=== PATIENT | male | born 1940 | race Caucasian/White ===

== ENCOUNTER → 2016-03-12 | Outpatient (REF) | payer MEDICARE, OTHER | LOC: M LAB REF 13:26 | PROVIDERS: ATTEND Nurse Practitioner Family | DX: L08.9 Local infection of the skin and subcutaneous tissue, unspecified (principal) ==

== ENCOUNTER → 2018-02-22 | Outpatient (REF) | payer MEDICARE, OTHER | LOC: M SFHCPLAZ 15:52 | PROVIDERS: ATTEND Internal Medicine Infectious Disease | DX: M86.659 Other chronic osteomyelitis, unspecified thigh (principal) | CPT/HCPCS: 36415; 80053; 85025; 85652; 86140; 87070; 87077; 87186; G0463 ==

== ENCOUNTER → 2018-02-22 | Outpatient (REF) | payer MEDICARE, OTHER ==
[2018-02-22 17:21] LABS: ALBUMIN 3.2 GM/DL (3.2-5.2); BASO # 0.1 10^3/uL (0.0-0.2); BASO % 0.5 % (0.0-1.0); BILIRUBIN,TOTAL 0.2 MG/DL (0.2-1.0); C REACTIVE PROTEIN QUANTITATIV 5.12 MG/DL (0.00-0.30); CALCIUM LEVEL 8.7 MG/DL (8.8-10.2); CREATININE FOR GFR 1.33 MG/DL (0.70-1.30); EOS # 0.2 10^3/uL (0.0-0.50); GLOMERULAR FILTRATION RATE 55.5 (>42); HEMATOCRIT 39.6 % (42.0-52.0); HEMOGLOBIN 12.9 g/dl (13.5-17.5); LYMPH # 1.4 10^3/uL (1.5-4.5); LYMPH % 12.5 % (24.0-44.0); MEAN CORPUSCULAR HEMOGLOBIN 29.8 pg (27.0-33.0); MEAN CORPUSCULAR HGB CONC 32.6 g/dl (32.0-36.5); MEAN CORPUSCULAR VOLUME 91.5 fl (80.0-96.0); MONO # 0.8 10^3/uL (0.0-0.8); MONO % 7.7 % (0.0-5.0); NEUTROPHILS # 8.4 10^3/uL (1.8-7.7); NEUTROPHILS % 76.8 % (36.0-66.0); PLATELET COUNT, AUTOMATED 296 10^3/uL (150-450); POTASSIUM SERUM 4.1 MEQ/L (3.5-5.1); RED BLOOD COUNT 4.33 10^6/uL (4.30-6.10); TOTAL PROTEIN 7.1 GM/DL (6.4-8.2); WHITE BLOOD COUNT 10.9 10^3/uL (4.0-10.0)
[2018-02-22 23:27] LABS: ERYTHROCYTE SEDIMENTATION RATE 81 mm/hr (0-20)
== END ==
LOC: M SFHCPLAZ 14:28
PROVIDERS: ATTEND Internal Medicine Infectious Disease
DX: M86.659 Other chronic osteomyelitis, unspecified thigh (principal)

== ENCOUNTER → 2018-03-08 | Outpatient (REF) | payer MEDICARE, OTHER ==
[2018-03-08 15:45] LABS: BASO % 0.3 % (0.0-1.0); EOS # 0.2 10^3/uL (0.0-0.50); EOS % 2.5 % (0.0-3.0); HEMATOCRIT 42.6 % (42.0-52.0); HEMOGLOBIN 13.9 g/dl (13.5-17.5); LYMPH # 2.1 10^3/uL (1.5-4.5); LYMPH % 23.2 % (24.0-44.0); MEAN CORPUSCULAR HEMOGLOBIN 29.5 pg (27.0-33.0); MEAN CORPUSCULAR HGB CONC 32.6 g/dl (32.0-36.5); MEAN CORPUSCULAR VOLUME 90.4 fl (80.0-96.0); MONO # 0.9 10^3/uL (0.0-0.8); MONO % 9.4 % (0.0-5.0); NEUTROPHILS # 5.8 10^3/uL (1.8-7.7); PLATELET COUNT, AUTOMATED 248 10^3/uL (150-450); RED BLOOD COUNT 4.71 10^6/uL (4.30-6.10)
[2018-03-08 15:49] LABS: BLOOD UREA NITROGEN 23 MG/DL (7-18); C REACTIVE PROTEIN QUANTITATIV 0.67 MG/DL (0.00-0.30); CALCIUM LEVEL 8.7 MG/DL (8.8-10.2); CARBON DIOXIDE LEVEL 28 MEQ/L (21-32); CHLORIDE LEVEL 106 MEQ/L (98-107); CREATININE FOR GFR 1.17 MG/DL (0.70-1.30); GLOMERULAR FILTRATION RATE > 60.0 (>42); GLUCOSE, FASTING 83 MG/DL (70-100); POTASSIUM SERUM 4.2 MEQ/L (3.5-5.1); SODIUM LEVEL 140 MEQ/L (136-145)
[2018-03-08 16:19] LABS: ERYTHROCYTE SEDIMENTATION RATE 69 mm/hr (0-20)
== END ==
LOC: M SFHCPLAZ 13:26
PROVIDERS: ATTEND Internal Medicine Infectious Disease
DX: M86.659 Other chronic osteomyelitis, unspecified thigh (principal)
CPT/HCPCS: 36415; 80048; 85025; 85652; 86140; G0463

== ENCOUNTER → 2018-03-21 | Outpatient (REF) | payer MEDICARE, OTHER ==
[2018-03-21 14:19] LABS: BASO % 0.5 % (0.0-1.0); EOS # 0.2 10^3/uL (0.0-0.50); EOS % 2.1 % (0.0-3.0); HEMOGLOBIN 13.7 g/dl (13.5-17.5); LYMPH # 1.5 10^3/uL (1.5-4.5); LYMPH % 20.1 % (24.0-44.0); MEAN CORPUSCULAR HEMOGLOBIN 29.7 pg (27.0-33.0); MEAN CORPUSCULAR HGB CONC 32.6 g/dl (32.0-36.5); MEAN CORPUSCULAR VOLUME 91.1 fl (80.0-96.0); MONO # 0.7 10^3/uL (0.0-0.8); MONO % 9.7 % (0.0-5.0); NEUTROPHILS % 67.2 % (36.0-66.0); PLATELET COUNT, AUTOMATED 204 10^3/uL (150-450); RED BLOOD COUNT 4.61 10^6/uL (4.30-6.10); WHITE BLOOD COUNT 7.5 10^3/uL (4.0-10.0)
[2018-03-21 15:13] LABS: ERYTHROCYTE SEDIMENTATION RATE 44 mm/hr (0-20)
== END ==
LOC: M SFHCPLAZ 10:47
PROVIDERS: ATTEND Internal Medicine Infectious Disease
DX: M86.659 Other chronic osteomyelitis, unspecified thigh (principal)
CPT/HCPCS: 36415; 85025; 85652; 86140; G0463

== ENCOUNTER → 2018-05-05 | Outpatient (REF) | payer MEDICARE, OTHER ==
[2018-05-05 16:02] LABS: BASO # 0.1 10^3/uL (0.0-0.2); BASO % 0.7 % (0.0-1.0); EOS # 0.2 10^3/uL (0.0-0.50); EOS % 2.3 % (0.0-3.0); HEMATOCRIT 45.9 % (42.0-52.0); LYMPH # 1.8 10^3/uL (1.5-4.5); MEAN CORPUSCULAR HEMOGLOBIN 30.8 pg (27.0-33.0); MEAN CORPUSCULAR HGB CONC 32.7 g/dl (32.0-36.5); MEAN CORPUSCULAR VOLUME 94.3 fl (80.0-96.0); MONO # 0.7 10^3/uL (0.0-0.8); MONO % 8.1 % (0.0-5.0); NEUTROPHILS # 5.8 10^3/uL (1.8-7.7); NEUTROPHILS % 67.6 % (36.0-66.0); PLATELET COUNT, AUTOMATED 215 10^3/uL (150-450); RED BLOOD COUNT 4.87 10^6/uL (4.30-6.10); WHITE BLOOD COUNT 8.6 10^3/uL (4.0-10.0)
[2018-05-05 17:41] LABS: ERYTHROCYTE SEDIMENTATION RATE 27 mm/hr (0-20)
== END ==
LOC: M SFHCPLAZ 13:06
PROVIDERS: ATTEND Internal Medicine Infectious Disease
DX: M86.659 Other chronic osteomyelitis, unspecified thigh (principal)
CPT/HCPCS: 36415; 85025; 85652; 86140; G0463

== ENCOUNTER → 2018-05-23 | Outpatient (REF) | payer MEDICARE, OTHER ==
[2018-05-23 16:55] LABS: BASO # 0.1 10^3/uL (0.0-0.2); BASO % 0.6 % (0.0-1.0); EOS # 0.3 10^3/uL (0.0-0.50); HEMOGLOBIN 14.1 g/dl (13.5-17.5); LYMPH # 2.1 10^3/uL (1.5-4.5); LYMPH % 24.8 % (24.0-44.0); MEAN CORPUSCULAR HEMOGLOBIN 30.4 pg (27.0-33.0); MEAN CORPUSCULAR HGB CONC 32.8 g/dl (32.0-36.5); MEAN CORPUSCULAR VOLUME 92.7 fl (80.0-96.0); MONO % 11.5 % (0.0-5.0); NEUTROPHILS # 4.9 10^3/uL (1.8-7.7); NEUTROPHILS % 59.7 % (36.0-66.0); PLATELET COUNT, AUTOMATED 192 10^3/uL (150-450); RED BLOOD COUNT 4.64 10^6/uL (4.30-6.10); WHITE BLOOD COUNT 8.3 10^3/uL (4.0-10.0)
[2018-05-23 18:46] LABS: ERYTHROCYTE SEDIMENTATION RATE 25 mm/hr (0-20)
== END ==
LOC: M SFHCPLAZ 13:43
PROVIDERS: ATTEND Internal Medicine Infectious Disease
DX: M86.659 Other chronic osteomyelitis, unspecified thigh (principal)
CPT/HCPCS: 36415; 85025; 85652; 86140; G0463

== ENCOUNTER → 2018-06-06 | Outpatient (REF) | payer MEDICARE, OTHER ==
[2018-06-06 12:00] LABS: BASO % 0.4 % (0.0-1.0); EOS # 0.2 10^3/uL (0.0-0.50); HEMATOCRIT 45.9 % (42.0-52.0); HEMOGLOBIN 15.1 g/dl (13.5-17.5); LYMPH # 1.4 10^3/uL (1.5-4.5); LYMPH % 14.1 % (24.0-44.0); MEAN CORPUSCULAR HEMOGLOBIN 30.7 pg (27.0-33.0); MEAN CORPUSCULAR HGB CONC 32.9 g/dl (32.0-36.5); MEAN CORPUSCULAR VOLUME 93.3 fl (80.0-96.0); MONO # 1.1 10^3/uL (0.0-0.8); MONO % 11.5 % (0.0-5.0); NEUTROPHILS # 6.8 10^3/uL (1.8-7.7); NEUTROPHILS % 71.5 % (36.0-66.0); PLATELET COUNT, AUTOMATED 198 10^3/uL (150-450); RED BLOOD COUNT 4.92 10^6/uL (4.30-6.10); WHITE BLOOD COUNT 9.6 10^3/uL (4.0-10.0)
[2018-06-06 22:13] LABS: ERYTHROCYTE SEDIMENTATION RATE 18 mm/hr (0-20)
== END ==
LOC: M SFHCPLAZ 08:51
PROVIDERS: ATTEND Internal Medicine Infectious Disease
DX: M86.659 Other chronic osteomyelitis, unspecified thigh (principal)

== ENCOUNTER → 2018-06-13 | Outpatient (REF) | payer MEDICARE, OTHER ==
[2018-06-13 12:58] LABS: BASO # 0.1 10^3/uL (0.0-0.2); BASO % 0.6 % (0.0-1.0); EOS # 0.1 10^3/uL (0.0-0.50); EOS % 1.6 % (0.0-3.0); HEMATOCRIT 44.1 % (42.0-52.0); HEMOGLOBIN 14.8 g/dl (13.5-17.5); LYMPH # 1.5 10^3/uL (1.5-4.5); LYMPH % 16.8 % (24.0-44.0); MEAN CORPUSCULAR HEMOGLOBIN 31.6 pg (27.0-33.0); MEAN CORPUSCULAR HGB CONC 33.6 g/dl (32.0-36.5); MEAN CORPUSCULAR VOLUME 94.2 fl (80.0-96.0); MONO # 0.7 10^3/uL (0.0-0.8); MONO % 7.8 % (0.0-5.0); NEUTROPHILS # 6.5 10^3/uL (1.8-7.7); NEUTROPHILS % 72.5 % (36.0-66.0); PLATELET COUNT, AUTOMATED 216 10^3/uL (150-450); RED BLOOD COUNT 4.68 10^6/uL (4.30-6.10); WHITE BLOOD COUNT 8.9 10^3/uL (4.0-10.0)
[2018-06-13 14:18] LABS: ERYTHROCYTE SEDIMENTATION RATE 70 mm/hr (0-20)
== END ==
LOC: M SFHCPLAZ 09:41
PROVIDERS: ATTEND Internal Medicine Infectious Disease
DX: M86.659 Other chronic osteomyelitis, unspecified thigh (principal)

== ENCOUNTER → 2018-06-16 | Outpatient (REF) | payer MEDICARE, OTHER | LOC: M SFHCPLAZ 11:55 | PROVIDERS: ATTEND Internal Medicine Infectious Disease | DX: A49.01 Methicillin susceptible Staphylococcus aureus infection, unspecified site (principal) | CPT/HCPCS: 87070; 87186; G0463 ==

== ENCOUNTER → 2018-06-30 | Outpatient (REF) | payer MEDICARE, OTHER ==
[2018-06-30 12:20] LABS: BASO % 0.6 % (0.0-1.0); EOS # 0.2 10^3/uL (0.0-0.50); EOS % 2.4 % (0.0-3.0); HEMATOCRIT 43.1 % (42.0-52.0); LYMPH # 1.4 10^3/uL (1.5-4.5); LYMPH % 20.3 % (24.0-44.0); MEAN CORPUSCULAR HEMOGLOBIN 30.9 pg (27.0-33.0); MEAN CORPUSCULAR HGB CONC 32.5 g/dl (32.0-36.5); MEAN CORPUSCULAR VOLUME 95.1 fl (80.0-96.0); MONO # 0.7 10^3/uL (0.0-0.8); MONO % 10.1 % (0.0-5.0); NEUTROPHILS # 4.5 10^3/uL (1.8-7.7); NEUTROPHILS % 65.9 % (36.0-66.0); PLATELET COUNT, AUTOMATED 226 10^3/uL (150-450); RED BLOOD COUNT 4.53 10^6/uL (4.30-6.10); WHITE BLOOD COUNT 6.8 10^3/uL (4.0-10.0)
[2018-06-30 12:25] LABS: C REACTIVE PROTEIN QUANTITATIV 0.99 MG/DL (0.00-0.30); CALCIUM LEVEL 8.6 MG/DL (8.8-10.2); CREATININE FOR GFR 1.4 MG/DL (0.70-1.30); GLOMERULAR FILTRATION RATE 52.3 (>42); POTASSIUM SERUM 4.3 MEQ/L (3.5-5.1)
[2018-06-30 12:52] LABS: ERYTHROCYTE SEDIMENTATION RATE 44 mm/hr (0-20)
== END ==
LOC: M SFHCPLAZ 10:35
PROVIDERS: ATTEND Internal Medicine Infectious Disease
DX: A49.01 Methicillin susceptible Staphylococcus aureus infection, unspecified site (principal)

== ENCOUNTER → 2018-07-14 | Outpatient (REF) | payer MEDICARE, OTHER ==
[2018-07-14 14:04] LABS: BASO # 0.1 10^3/uL (0.0-0.2); BASO % 0.6 % (0.0-1.0); EOS # 0.2 10^3/uL (0.0-0.50); EOS % 3.1 % (0.0-3.0); HEMATOCRIT 48.2 % (42.0-52.0); HEMOGLOBIN 15.7 g/dl (13.5-17.5); LYMPH # 1.7 10^3/uL (1.5-4.5); LYMPH % 22.5 % (24.0-44.0); MEAN CORPUSCULAR HGB CONC 32.6 g/dl (32.0-36.5); MEAN CORPUSCULAR VOLUME 95.1 fl (80.0-96.0); MONO # 0.9 10^3/uL (0.0-0.8); NEUTROPHILS # 4.8 10^3/uL (1.8-7.7); NEUTROPHILS % 62.2 % (36.0-66.0); PLATELET COUNT, AUTOMATED 192 10^3/uL (150-450); RED BLOOD COUNT 5.07 10^6/uL (4.30-6.10); WHITE BLOOD COUNT 7.7 10^3/uL (4.0-10.0)
[2018-07-14 14:31] LABS: C REACTIVE PROTEIN QUANTITATIV 0.45 MG/DL (0.00-0.30); CALCIUM LEVEL 9.4 MG/DL (8.8-10.2); CREATININE FOR GFR 1.39 MG/DL (0.70-1.30); GLOMERULAR FILTRATION RATE 52.7 (>42); POTASSIUM SERUM 4.2 MEQ/L (3.5-5.1)
[2018-07-14 15:38] LABS: ERYTHROCYTE SEDIMENTATION RATE 35 mm/hr (0-20)
== END ==
LOC: M SFHCPLAZ 11:50
PROVIDERS: ATTEND Internal Medicine Infectious Disease
DX: A49.01 Methicillin susceptible Staphylococcus aureus infection, unspecified site (principal)
CPT/HCPCS: 36415; 80048; 85025; 85652; 86140; G0463

== ENCOUNTER → 2018-07-28 | Outpatient (REF) | payer MEDICARE, OTHER ==
[2018-07-28 13:58] LABS: BASO % 0.4 % (0.0-1.0); EOS # 0.1 10^3/uL (0.0-0.50); EOS % 1.3 % (0.0-3.0); HEMATOCRIT 44.4 % (42.0-52.0); HEMOGLOBIN 14.5 g/dl (13.5-17.5); LYMPH # 1.6 10^3/uL (1.5-4.5); LYMPH % 15.4 % (24.0-44.0); MEAN CORPUSCULAR HEMOGLOBIN 30.5 pg (27.0-33.0); MEAN CORPUSCULAR HGB CONC 32.7 g/dl (32.0-36.5); MEAN CORPUSCULAR VOLUME 93.5 fl (80.0-96.0); MONO % 9.9 % (0.0-5.0); NEUTROPHILS # 7.4 10^3/uL (1.8-7.7); NEUTROPHILS % 72.5 % (36.0-66.0); PLATELET COUNT, AUTOMATED 217 10^3/uL (150-450); RED BLOOD COUNT 4.75 10^6/uL (4.30-6.10); WHITE BLOOD COUNT 10.2 10^3/uL (4.0-10.0)
[2018-07-28 14:27] LABS: C REACTIVE PROTEIN QUANTITATIV 3.15 MG/DL (0.00-0.30); CALCIUM LEVEL 9.1 MG/DL (8.8-10.2); CREATININE FOR GFR 1.32 MG/DL (0.70-1.30); POTASSIUM SERUM 4.2 MEQ/L (3.5-5.1)
[2018-07-28 14:29] LABS: ERYTHROCYTE SEDIMENTATION RATE 43 mm/hr (0-20)
== END ==
LOC: M SFHCPLAZ 11:48
PROVIDERS: ATTEND Internal Medicine Infectious Disease
DX: M86.659 Other chronic osteomyelitis, unspecified thigh (principal)
CPT/HCPCS: 36415; 80048; 85025; 85652; 86140; G0463

== ENCOUNTER → 2018-08-11 | Outpatient (REF) | payer MEDICARE, OTHER ==
[2018-08-11 13:43] LABS: BASO % 0.4 % (0.0-1.0); C REACTIVE PROTEIN QUANTITATIV 1.06 MG/DL (0.00-0.30); CALCIUM LEVEL 9.2 MG/DL (8.8-10.2); CREATININE FOR GFR 1.42 MG/DL (0.70-1.30); EOS # 0.2 10^3/uL (0.0-0.50); EOS % 2.2 % (0.0-3.0); GLOMERULAR FILTRATION RATE 51.5 (>42); HEMATOCRIT 45.4 % (42.0-52.0); HEMOGLOBIN 14.6 g/dl (13.5-17.5); LYMPH # 1.8 10^3/uL (1.5-4.5); LYMPH % 17.7 % (24.0-44.0); MEAN CORPUSCULAR HEMOGLOBIN 30.3 pg (27.0-33.0); MEAN CORPUSCULAR HGB CONC 32.2 g/dl (32.0-36.5); MEAN CORPUSCULAR VOLUME 94.2 fl (80.0-96.0); MONO # 0.9 10^3/uL (0.0-0.8); MONO % 9.1 % (0.0-5.0); NEUTROPHILS % 70.2 % (36.0-66.0); PLATELET COUNT, AUTOMATED 225 10^3/uL (150-450); RED BLOOD COUNT 4.82 10^6/uL (4.30-6.10)
[2018-08-11 14:13] LABS: ERYTHROCYTE SEDIMENTATION RATE 34 mm/hr (0-20)
== END ==
LOC: M SFHCPLAZ 11:44
PROVIDERS: ATTEND Internal Medicine Infectious Disease
DX: M86.659 Other chronic osteomyelitis, unspecified thigh (principal)
CPT/HCPCS: 36415; 80048; 85025; 85652; 86140; G0463

== ENCOUNTER → 2018-09-01 | Outpatient (REF) | payer MEDICARE, OTHER ==
[2018-09-01 10:18] LABS: BASO # 0.1 10^3/uL (0.0-0.2); BASO % 0.7 % (0.0-1.0); EOS # 0.2 10^3/uL (0.0-0.50); EOS % 2.9 % (0.0-3.0); HEMATOCRIT 46.3 % (42.0-52.0); HEMOGLOBIN 15.5 g/dl (13.5-17.5); LYMPH # 1.3 10^3/uL (1.5-4.5); LYMPH % 18.5 % (24.0-44.0); MEAN CORPUSCULAR HEMOGLOBIN 31.4 pg (27.0-33.0); MEAN CORPUSCULAR HGB CONC 33.5 g/dl (32.0-36.5); MEAN CORPUSCULAR VOLUME 93.7 fl (80.0-96.0); MONO # 0.7 10^3/uL (0.0-0.8); NEUTROPHILS # 4.9 10^3/uL (1.8-7.7); NEUTROPHILS % 68.5 % (36.0-66.0); PLATELET COUNT, AUTOMATED 244 10^3/uL (150-450); RED BLOOD COUNT 4.94 10^6/uL (4.30-6.10); WHITE BLOOD COUNT 7.2 10^3/uL (4.0-10.0)
[2018-09-01 10:52] LABS: BILIRUBIN,TOTAL 0.6 MG/DL (0.2-1.0); C REACTIVE PROTEIN QUANTITATIV 1.24 MG/DL (0.00-0.30); CALCIUM LEVEL 9.3 MG/DL (8.8-10.2); CREATININE FOR GFR 1.39 MG/DL (0.70-1.30); GLOMERULAR FILTRATION RATE 52.7 (>42); POTASSIUM SERUM 4.5 MEQ/L (3.5-5.1); TOTAL PROTEIN 8.1 GM/DL (6.4-8.2)
[2018-09-01 10:56] LABS: ERYTHROCYTE SEDIMENTATION RATE 23 mm/hr (0-20)
== END ==
LOC: M SFHCPLAZ 08:37
PROVIDERS: ATTEND Internal Medicine Infectious Disease
DX: M86.659 Other chronic osteomyelitis, unspecified thigh (principal)
CPT/HCPCS: 36415; 80053; 85025; 85652; 86140; G0463

== ENCOUNTER → 2018-10-03 | Outpatient (REF) | payer MEDICARE, OTHER ==
[2018-10-03 14:08] LABS: BASO # 0.1 10^3/uL (0.0-0.2); BASO % 0.6 % (0.0-1.0); EOS # 0.5 10^3/uL (0.0-0.50); EOS % 3.6 % (0.0-3.0); LYMPH # 1.2 10^3/uL (1.5-4.5); LYMPH % 9.3 % (24.0-44.0); MEAN CORPUSCULAR HEMOGLOBIN 30.7 pg (27.0-33.0); MEAN CORPUSCULAR HGB CONC 32.5 g/dl (32.0-36.5); MEAN CORPUSCULAR VOLUME 94.6 fl (80.0-96.0); MONO # 1.1 10^3/uL (0.0-0.8); MONO % 8.7 % (0.0-5.0); NEUTROPHILS # 9.6 10^3/uL (1.8-7.7); NEUTROPHILS % 76.2 % (36.0-66.0); PLATELET COUNT, AUTOMATED 299 10^3/uL (150-450); RED BLOOD COUNT 4.23 10^6/uL (4.30-6.10); WHITE BLOOD COUNT 12.5 10^3/uL (4.0-10.0)
[2018-10-03 14:15] LABS: C REACTIVE PROTEIN QUANTITATIV 3.67 MG/DL (0.00-0.30); CALCIUM LEVEL 8.7 MG/DL (8.8-10.2); CREATININE FOR GFR 1.37 MG/DL (0.70-1.30); GLOMERULAR FILTRATION RATE 53.6 (>42); POTASSIUM SERUM 3.1 MEQ/L (3.5-5.1)
[2018-10-03 14:29] LABS: ERYTHROCYTE SEDIMENTATION RATE 52 mm/hr (0-20)
== END ==
LOC: M SFHCPLAZ 11:10
PROVIDERS: ATTEND Internal Medicine Infectious Disease
DX: M86.659 Other chronic osteomyelitis, unspecified thigh (principal)
CPT/HCPCS: 80048; 85025; 85652; 86140; G0463

== ENCOUNTER → 2018-10-18 | Outpatient (REF) | payer MEDICARE, OTHER | LOC: M SFHCPLAZ 15:59 | PROVIDERS: ATTEND Internal Medicine Infectious Disease | DX: R19.7 Diarrhea, unspecified (principal) | CPT/HCPCS: 36415; 80053; 85025; 85652; 86140; 87529; G0463 ==

== ENCOUNTER → 2018-10-18 | Outpatient (REF) | payer MEDICARE, OTHER ==
[2018-10-18 17:04] LABS: ALBUMIN 3.6 GM/DL (3.2-5.2); BILIRUBIN,TOTAL 0.6 MG/DL (0.2-1.0); C REACTIVE PROTEIN QUANTITATIV 1.59 MG/DL (0.00-0.30); CALCIUM LEVEL 8.8 MG/DL (8.8-10.2); CREATININE FOR GFR 1.32 MG/DL (0.70-1.30); TOTAL PROTEIN 7.2 GM/DL (6.4-8.2)
[2018-10-18 17:15] LABS: BASO # 0.1 10^3/uL (0.0-0.2); BASO % 0.5 % (0.0-1.0); EOS # 0.5 10^3/uL (0.0-0.5); EOS % 4.7 % (0.0-3.0); HEMATOCRIT 40.7 % (42.0-52.0); HEMOGLOBIN 13.3 g/dl (13.5-17.5); LYMPH # 1.4 10^3/uL (1.5-5.0); LYMPH % 12.6 % (24.0-44.0); MEAN CORPUSCULAR HEMOGLOBIN 30.9 pg (27.0-33.0); MEAN CORPUSCULAR HGB CONC 32.7 g/dl (32.0-36.5); MEAN CORPUSCULAR VOLUME 94.4 fl (80.0-96.0); MONO # 0.8 10^3/uL (0.0-0.8); MONO % 7.4 % (0.0-5.0); NEUTROPHILS % 74.2 % (36.0-66.0); PLATELET COUNT, AUTOMATED 202 10^3/uL (150-450); RED BLOOD COUNT 4.31 10^6/uL (4.30-6.10); WHITE BLOOD COUNT 10.8 10^3/uL (4.0-10.0)
[2018-10-18 18:55] LABS: ERYTHROCYTE SEDIMENTATION RATE 52 mm/hr (0-20)
== END ==
LOC: M SFHCPLAZ 13:03
PROVIDERS: ATTEND Internal Medicine Infectious Disease
DX: M86.659 Other chronic osteomyelitis, unspecified thigh (principal); R19.7 Diarrhea, unspecified

== ENCOUNTER → 2018-10-21 | Outpatient (CLI) | payer MEDICARE, BC, OTHER ==
[~2018-10-21] MED LIST: ISOVUE-370 76% 100ML VIAL (Q9967) As Ordered ONE
--- NOTE | 2018-10-21 17:25 | REP ---
Clinical: Abdominal pain. Possible osteomyelitis. Technique: Axial contrast enhanced images from the lung bases to the pubic symphysis using 100 ml Isovue 370 intravenous contrast material with coronal and sagittal re-formations. Precontrast and delayed images of the abdomen obtained. Findings: The lung bases demonstrate mild age-related interstitial changes without consolidation, obvious nodule or effusion. A small calcified granulomas identified in the medial right lower lobe (image 5). Visualized portions of the heart and pericardium are grossly normal. Liver and spleen are within normal limits. Parenchymal calcifications are noted and consistent with prior granulomatous disease. Gallbladder, pancreas, and bilateral adrenal glands are normal. The kidneys demonstrate age-related cortical atrophic changes along with minimal scattered scarring, left calcified cyst and 2.5 cm left simple cyst. There is evidence for bladder resection with diverting ileal conduit via the right anterior abdominal wall and no associated hydronephrosis. Small amounts of fluid and inflammatory stranding are identified adjacent to the ostomy in the subcutaneous soft tissues which are nonspecific. No prior examinations available for comparison. Evaluation of the enteric system demonstrates mild mucosal thickening involving the transverse colon and portions of the sigmoid colon which may reflect a mild colitis. Sigmoid diverticula are also appreciated without definite evidence for acute diverticulitis. A normal terminal ileum, cecum and appendix are identified in the right lower quadrant. Evaluation of the pelvis demonstrates findings consistent with prior bladder resection and prostate surgery. Vague nonspecific soft tissue changes within the pelvis as well as surrounding the pubic symphysis which demonstrates focal increased sclerosis, heterotopic ossification and subtle cortical irregularity and degradation cannot exclude an underlying process including osteomyelitis or metastasis. There is increased sclerosis and fusion along the right sacroiliac joint and sclerosis along the left sacroiliac joint which likely represents chronic change. Remainder of the osseous structures demonstrate generalized degenerative changes without further focal osseous abnormality. No ascites. No obvious significant adenopathy. Abdominal aorta without aneurysm or dissection. IVC filter identified below the level of the renal veins. Impression: 1. With regards to osteomyelitis, increased sclerosis with irregular changes involving the pubic symphysis with surrounding subcutaneous soft tissue and stranding cannot exclude osteomyelitis. Differential diagnosis less likely includes focal metastatic disease. 2. Evidence for ileal conduit with changes in the adjacent peristomal subcutaneous tissue including stranding and small amounts of suspected fluid are nonspecific. While these may reflect chronic/postsurgical changes, active disease including inflammatory change and metastasis cannot be excluded. 3. Further chronic appearing/age-related changes as described above. Electronically Signed by Bradford Kelly MD 10/21/2018 05:17 P
== END ==
LOC: M RAD 16:25
PROVIDERS: ATTEND Internal Medicine Infectious Disease
DX: R10.9 Unspecified abdominal pain (principal); M86.9 Osteomyelitis, unspecified
CPT/HCPCS: 74178; Q9967

== ENCOUNTER → 2018-11-08 | Outpatient (REF) | payer MEDICARE, OTHER | LOC: M SFHCPLAZ 13:24 | PROVIDERS: ATTEND Internal Medicine Infectious Disease | DX: M86.659 Other chronic osteomyelitis, unspecified thigh (principal) | CPT/HCPCS: 36415; 80048; 85025; 85652; 86140; 87070; 87077; 87102; 87186; 87205; 90682; G0008; G0463 ==

== ENCOUNTER → 2018-11-08 | Outpatient (REF) | payer MEDICARE, OTHER ==
[2018-11-08 14:13] LABS: C REACTIVE PROTEIN QUANTITATIV 1.26 MG/DL (0.00-0.30); CALCIUM LEVEL 9.1 MG/DL (8.8-10.2); CREATININE FOR GFR 1.25 MG/DL (0.70-1.30); GLOMERULAR FILTRATION RATE 59.6 (>42); POTASSIUM SERUM 4.6 MEQ/L (3.5-5.1)
[2018-11-08 14:18] LABS: BASO # 0.1 10^3/uL (0.0-0.2); BASO % 0.8 % (0.0-1.0); EOS # 0.4 10^3/uL (0.0-0.5); EOS % 4.4 % (0.0-3.0); HEMATOCRIT 41.3 % (42.0-52.0); HEMOGLOBIN 13.1 g/dl (13.5-17.5); LYMPH # 1.3 10^3/uL (1.5-5.0); MEAN CORPUSCULAR HEMOGLOBIN 30.3 pg (27.0-33.0); MEAN CORPUSCULAR HGB CONC 31.7 g/dl (32.0-36.5); MEAN CORPUSCULAR VOLUME 95.4 fl (80.0-96.0); MONO % 11.6 % (0.0-5.0); NEUTROPHILS # 5.7 10^3/uL (1.5-8.5); NEUTROPHILS % 67.7 % (36.0-66.0); PLATELET COUNT, AUTOMATED 203 10^3/uL (150-450); RED BLOOD COUNT 4.33 10^6/uL (4.30-6.10); WHITE BLOOD COUNT 8.4 10^3/uL (4.0-10.0)
[2018-11-08 14:52] LABS: ERYTHROCYTE SEDIMENTATION RATE 33 mm/hr (0-20)
== END ==
LOC: M SFHCPLAZ 11:41
PROVIDERS: ATTEND Internal Medicine Infectious Disease
DX: M86.659 Other chronic osteomyelitis, unspecified thigh (principal)

== ENCOUNTER → 2018-12-01 | Outpatient (REF) | payer MEDICARE, OTHER ==
[2018-12-01 13:49] LABS: BASO # 0.1 10^3/uL (0.0-0.2); BASO % 0.7 % (0.0-1.0); EOS # 0.5 10^3/uL (0.0-0.5); EOS % 5.7 % (0.0-3.0); HEMATOCRIT 44.7 % (42.0-52.0); HEMOGLOBIN 14.6 g/dl (13.5-17.5); LYMPH # 1.7 10^3/uL (1.5-5.0); LYMPH % 18.3 % (24.0-44.0); MEAN CORPUSCULAR HEMOGLOBIN 31.3 pg (27.0-33.0); MEAN CORPUSCULAR HGB CONC 32.7 g/dl (32.0-36.5); MEAN CORPUSCULAR VOLUME 95.9 fl (80.0-96.0); MONO % 10.5 % (0.0-5.0); NEUTROPHILS # 5.9 10^3/uL (1.5-8.5); NEUTROPHILS % 64.4 % (36.0-66.0); PLATELET COUNT, AUTOMATED 210 10^3/uL (150-450); RED BLOOD COUNT 4.66 10^6/uL (4.30-6.10); WHITE BLOOD COUNT 9.2 10^3/uL (4.0-10.0)
[2018-12-01 14:13] LABS: ERYTHROCYTE SEDIMENTATION RATE 31 mm/hr (0-20)
== END ==
LOC: M SFHCPLAZ 11:47
PROVIDERS: ATTEND Internal Medicine Infectious Disease
DX: M86.659 Other chronic osteomyelitis, unspecified thigh (principal)
CPT/HCPCS: 36415; 85025; 85652; 86140; G0463

== ENCOUNTER → 2018-12-29 | Outpatient (REF) | payer MEDICARE, OTHER ==
[2018-12-29 14:06] LABS: BASO # 0.1 10^3/uL (0.0-0.2); BASO % 0.7 % (0.0-1.0); EOS # 0.4 10^3/uL (0.0-0.5); EOS % 4.5 % (0.0-3.0); HEMATOCRIT 44.6 % (42.0-52.0); HEMOGLOBIN 14.4 g/dl (13.5-17.5); LYMPH # 1.6 10^3/uL (1.5-5.0); LYMPH % 16.6 % (24.0-44.0); MEAN CORPUSCULAR HEMOGLOBIN 30.8 pg (27.0-33.0); MEAN CORPUSCULAR HGB CONC 32.3 g/dl (32.0-36.5); MEAN CORPUSCULAR VOLUME 95.3 fl (80.0-96.0); MONO % 10.1 % (0.0-5.0); NEUTROPHILS # 6.4 10^3/uL (1.5-8.5); NEUTROPHILS % 67.5 % (36.0-66.0); PLATELET COUNT, AUTOMATED 220 10^3/uL (150-450); RED BLOOD COUNT 4.68 10^6/uL (4.30-6.10); WHITE BLOOD COUNT 9.5 10^3/uL (4.0-10.0)
[2018-12-29 15:26] LABS: ERYTHROCYTE SEDIMENTATION RATE 35 mm/hr (0-20)
== END ==
LOC: M SFHCPLAZ 11:00
PROVIDERS: ATTEND Internal Medicine Infectious Disease
DX: M86.659 Other chronic osteomyelitis, unspecified thigh (principal)
CPT/HCPCS: 36415; 85025; 85652; 86140; G0463

== ENCOUNTER → 2019-01-26 | Outpatient (REF) | payer MEDICARE, OTHER ==
[2019-01-26 13:35] LABS: C REACTIVE PROTEIN QUANTITATIV 0.54 MG/DL (0.00-0.30); CALCIUM LEVEL 9.3 MG/DL (8.8-10.2); CREATININE FOR GFR 1.31 MG/DL (0.70-1.30); GLOMERULAR FILTRATION RATE 56.3 (>42); POTASSIUM SERUM 4.5 MEQ/L (3.5-5.1)
[2019-01-26 13:37] LABS: BASO # 0.1 10^3/uL (0.0-0.2); BASO % 0.6 % (0.0-1.0); EOS # 0.4 10^3/uL (0.0-0.5); EOS % 4.3 % (0.0-3.0); HEMATOCRIT 47.4 % (42.0-52.0); HEMOGLOBIN 14.9 g/dl (13.5-17.5); LYMPH # 1.6 10^3/uL (1.5-5.0); LYMPH % 18.4 % (24.0-44.0); MEAN CORPUSCULAR HEMOGLOBIN 29.8 pg (27.0-33.0); MEAN CORPUSCULAR HGB CONC 31.4 g/dl (32.0-36.5); MEAN CORPUSCULAR VOLUME 94.8 fl (80.0-96.0); MONO # 0.9 10^3/uL (0.0-0.8); MONO % 10.1 % (0.0-5.0); NEUTROPHILS # 5.8 10^3/uL (1.5-8.5); NEUTROPHILS % 65.9 % (36.0-66.0); PLATELET COUNT, AUTOMATED 227 10^3/uL (150-450); WHITE BLOOD COUNT 8.8 10^3/uL (4.0-10.0)
[2019-01-26 14:18] LABS: ERYTHROCYTE SEDIMENTATION RATE 36 mm/hr (0-20)
== END ==
LOC: M SFHCPLAZ 11:14
PROVIDERS: ATTEND Internal Medicine Infectious Disease
DX: M86.68 Other chronic osteomyelitis, other site (principal)
CPT/HCPCS: 36415; 80048; 85025; 85652; 86140; G0463

== ENCOUNTER → 2019-02-23 | Outpatient (REF) | payer MEDICARE, OTHER ==
[2019-02-23 14:18] LABS: WHITE BLOOD COUNT 8.8 10^3/uL (4.0-10.0)
[2019-02-23 14:19] LABS: BASO # 0.1 10^3/uL (0.0-0.2); BASO % 0.7 % (0.0-1.0); EOS # 0.2 10^3/uL (0.0-0.5); EOS % 2.7 % (0.0-3.0); HEMATOCRIT 46.2 % (42.0-52.0); HEMOGLOBIN 14.6 g/dl (13.5-17.5); LYMPH # 1.5 10^3/uL (1.5-5.0); LYMPH % 16.9 % (24.0-44.0); MEAN CORPUSCULAR HEMOGLOBIN 29.6 pg (27.0-33.0); MEAN CORPUSCULAR HGB CONC 31.6 g/dl (32.0-36.5); MEAN CORPUSCULAR VOLUME 93.7 fl (80.0-96.0); MONO # 0.9 10^3/uL (0.0-0.8); MONO % 9.9 % (0.0-5.0); NEUTROPHILS # 6.1 10^3/uL (1.5-8.5); NEUTROPHILS % 69.1 % (36.0-66.0); PLATELET COUNT, AUTOMATED 184 10^3/uL (150-450); RED BLOOD COUNT 4.93 10^6/uL (4.30-6.10)
[2019-02-23 14:40] LABS: ERYTHROCYTE SEDIMENTATION RATE 19 mm/hr (0-20)
== END ==
LOC: M SFHCPLAZ 11:06
PROVIDERS: ATTEND Internal Medicine Infectious Disease
DX: M86.68 Other chronic osteomyelitis, other site (principal)
CPT/HCPCS: 36415; 85025; 85652; 86140; G0463

== ENCOUNTER → 2019-03-13 | Outpatient (CLI) | payer MEDICARE, BC, OTHER ==
[~2019-03-13] MED LIST changes: -ISOVUE-370 76% 100ML VIAL (Q9967) As Ordered ONE; +PROHANCE 279.3MG/ML 5ML VIAL (A9576) As Ordered ONE
--- NOTE | 2019-03-13 15:26 | REP ---
MRI PELVIS WITH AND WITHOUT IV CONTRAST: Multiple sequences obtained in the axial, coronal, and sagittal planes prior to and following the intravenous administration of 10 mL ProHance. There is abnormal signal in the pubis bilaterally, low in signal and high in signal on T2. There is ill-defined enhancement in this region. Findings are consistent with osteomyelitis. There is ill-defined high signal in the adjacent obturator internus muscles bilaterally with enhancement compatible with cellulitis and myositis. Small pocket of fluid is seen at the posterior inferior margin of the pubic symphysis probably representing a small abscess measuring 1.6 x 2.2 x 1.3 cm. No other abnormal bone marrow signal is seen. No other fluid collection is seen. I see no significant adenopathy in the pelvis. IMPRESSION: Findings compatible with osteomyelitis of the pubis bilaterally, along the pubic symphysis. There is adjacent myositis and cellulitis in the region of the obturator internus muscle bilaterally. A small pocket of fluid at the posterior/inferior margin of the pubic symphysis probably represents a small abscess, 1.6 x 2.2 x 1.3 cm. Electronically Signed by Alexis Jones MD 03/15/2019 12:02 P
== END ==
LOC: M RAD 09:11
PROVIDERS: ATTEND Internal Medicine Infectious Disease
DX: A49.01 Methicillin susceptible Staphylococcus aureus infection, unspecified site (principal); M85.58 Aneurysmal bone cyst, other site
CPT/HCPCS: 72197; A9576

== ENCOUNTER → 2019-03-23 | Outpatient (REF) | payer MEDICARE, OTHER ==
[2019-03-23 14:35] LABS: BASO % 0.5 % (0.0-1.0); EOS # 0.2 10^3/uL (0.0-0.5); EOS % 2.6 % (0.0-3.0); HEMATOCRIT 47.7 % (42.0-52.0); LYMPH # 1.5 10^3/uL (1.5-5.0); LYMPH % 18.8 % (24.0-44.0); MEAN CORPUSCULAR HEMOGLOBIN 29.4 pg (27.0-33.0); MEAN CORPUSCULAR HGB CONC 31.4 g/dl (32.0-36.5); MEAN CORPUSCULAR VOLUME 93.3 fl (80.0-96.0); MONO # 0.7 10^3/uL (0.0-0.8); MONO % 8.2 % (0.0-5.0); NEUTROPHILS # 5.7 10^3/uL (1.5-8.5); NEUTROPHILS % 69.3 % (36.0-66.0); PLATELET COUNT, AUTOMATED 209 10^3/uL (150-450); RED BLOOD COUNT 5.11 10^6/uL (4.30-6.10); WHITE BLOOD COUNT 8.2 10^3/uL (4.0-10.0)
[2019-03-23 15:05] LABS: C REACTIVE PROTEIN QUANTITATIV 0.49 MG/DL (0.00-0.30); CALCIUM LEVEL 9.2 MG/DL (8.8-10.2); CREATININE FOR GFR 1.27 MG/DL (0.70-1.30); GLOMERULAR FILTRATION RATE 58.4 (>42); POTASSIUM SERUM 4.1 MEQ/L (3.5-5.1)
[2019-03-23 15:20] LABS: ERYTHROCYTE SEDIMENTATION RATE 33 mm/hr (0-20)
== END ==
LOC: M SFHCPLAZ 11:24
PROVIDERS: ATTEND Internal Medicine Infectious Disease
DX: M86.652 Other chronic osteomyelitis, left thigh (principal)

== ENCOUNTER → 2019-05-02 | Outpatient (REF) | payer MEDICARE, OTHER ==
[2019-05-02 14:02] LABS: BASO # 0.1 10^3/uL (0.0-0.2); BASO % 0.8 % (0.0-1.0); BLOOD UREA NITROGEN 23 MG/DL (7-18); C REACTIVE PROTEIN QUANTITATIV 0.52 MG/DL (0.00-0.30); CALCIUM LEVEL 8.9 MG/DL (8.8-10.2); CARBON DIOXIDE LEVEL 29 MEQ/L (21-32); CHLORIDE LEVEL 107 MEQ/L (98-107); CREATININE FOR GFR 1.23 MG/DL (0.70-1.30); EOS # 0.3 10^3/uL (0.0-0.5); EOS % 3.5 % (0.0-3.0); GLOMERULAR FILTRATION RATE > 60.0 (>42); GLUCOSE, FASTING 92 MG/DL (70-100); HEMATOCRIT 43.4 % (42.0-52.0); HEMOGLOBIN 14.3 g/dl (13.5-17.5); LYMPH # 1.5 10^3/uL (1.5-5.0); LYMPH % 18.5 % (24.0-44.0); MEAN CORPUSCULAR HEMOGLOBIN 31.2 pg (27.0-33.0); MEAN CORPUSCULAR HGB CONC 32.9 g/dl (32.0-36.5); MEAN CORPUSCULAR VOLUME 94.6 fl (80.0-96.0); MONO # 0.7 10^3/uL (0.0-0.8); MONO % 9.4 % (0.0-5.0); NEUTROPHILS # 5.3 10^3/uL (1.5-8.5); NEUTROPHILS % 67.3 % (36.0-66.0); PLATELET COUNT, AUTOMATED 193 10^3/uL (150-450); POTASSIUM SERUM 4.5 MEQ/L (3.5-5.1); RED BLOOD COUNT 4.59 10^6/uL (4.30-6.10); SODIUM LEVEL 138 MEQ/L (136-145); WHITE BLOOD COUNT 7.9 10^3/uL (4.0-10.0)
[2019-05-02 15:05] LABS: ERYTHROCYTE SEDIMENTATION RATE 27 mm/hr (0-20)
== END ==
LOC: M SFHCPLAZ 10:48
PROVIDERS: ATTEND Internal Medicine Infectious Disease
DX: M86.68 Other chronic osteomyelitis, other site (principal)
CPT/HCPCS: 36415; 80048; 85025; 85652; 86140; G0463

== ENCOUNTER → 2019-06-13 | Outpatient (REF) | payer MEDICARE, OTHER ==
[2019-06-13 13:38] LABS: HEMATOCRIT 44.4 % (42.0-52.0); HEMOGLOBIN 14.5 g/dl (13.5-17.5); MEAN CORPUSCULAR HEMOGLOBIN 31.3 pg (27.0-33.0); MEAN CORPUSCULAR HGB CONC 32.7 g/dl (32.0-36.5); MEAN CORPUSCULAR VOLUME 95.9 fl (80.0-96.0); PLATELET COUNT, AUTOMATED 188 10^3/uL (150-450); RED BLOOD COUNT 4.63 10^6/uL (4.30-6.10); WHITE BLOOD COUNT 8.4 10^3/uL (4.0-10.0)
[2019-06-13 14:00] LABS: ERYTHROCYTE SEDIMENTATION RATE 37 mm/hr (0-20)
== END ==
LOC: M SFHCPLAZ 10:50
PROVIDERS: ATTEND Internal Medicine Infectious Disease
DX: M86.68 Other chronic osteomyelitis, other site (principal)
CPT/HCPCS: 36415; 85027; 85652; 86140; G0463

== ENCOUNTER → 2019-06-20 | Outpatient (REF) | payer MEDICARE, OTHER | LOC: M LAB REF 12:24 | PROVIDERS: ATTEND Surgery | DX: M86.659 Other chronic osteomyelitis, unspecified thigh (principal) ==

== ENCOUNTER → 2019-07-14 | Outpatient (REF) | payer MEDICARE, OTHER ==
[2019-07-14 13:02] LABS: BASO # 0.1 10^3/uL (0.0-0.2); BASO % 0.7 % (0.0-1.0); EOS # 0.2 10^3/uL (0.0-0.5); EOS % 2.5 % (0.0-3.0); HEMATOCRIT 43.6 % (42.0-52.0); HEMOGLOBIN 14.6 g/dl (13.5-17.5); LYMPH # 1.5 10^3/uL (1.5-5.0); LYMPH % 17.2 % (24.0-44.0); MEAN CORPUSCULAR HEMOGLOBIN 31.3 pg (27.0-33.0); MEAN CORPUSCULAR HGB CONC 33.5 g/dl (32.0-36.5); MEAN CORPUSCULAR VOLUME 93.4 fl (80.0-96.0); MONO # 0.9 10^3/uL (0.0-0.8); MONO % 10.6 % (0.0-5.0); NEUTROPHILS # 5.8 10^3/uL (1.5-8.5); NEUTROPHILS % 68.6 % (36.0-66.0); PLATELET COUNT, AUTOMATED 266 10^3/uL (150-450); RED BLOOD COUNT 4.67 10^6/uL (4.30-6.10); WHITE BLOOD COUNT 8.4 10^3/uL (4.0-10.0)
[2019-07-14 13:33] LABS: C REACTIVE PROTEIN QUANTITATIV 0.7 MG/DL (0.00-0.30); CALCIUM LEVEL 8.7 MG/DL (8.8-10.2); CREATININE FOR GFR 2.07 MG/DL (0.70-1.30); GLOMERULAR FILTRATION RATE 33.2 (>42); POTASSIUM SERUM 4.3 MEQ/L (3.5-5.1)
[2019-07-14 13:39] LABS: ERYTHROCYTE SEDIMENTATION RATE 38 mm/hr (0-20)
== END ==
LOC: M SFHCPLAZ 11:23
PROVIDERS: ATTEND Internal Medicine Infectious Disease
DX: M86.68 Other chronic osteomyelitis, other site (principal)

== ENCOUNTER 2019-07-21 14:17 | Outpatient (CLI) | payer MEDICARE, BC, OTHER ==
[~2019-07-21] VITALS: Ht 180.3 cm; Wt 135.0 kg
[~2019-07-21 14:17] MED LIST changes: -LIDOCAINE 1% MDV 20ML VIAL As Ordered ONE
[2019-07-21 14:30] VITALS: BP 119/66
[2019-07-21] MEDS ORDERED: SODIUM CHLORIDE 0.9% INJ 10 ML SYR IV PRN (14:45)
[2019-07-21] MEDS ORDERED: ERTAPENEM SODIUM 1 GM in NS MINI-BAG PLUS 50 ML IV ONE (15:00)
[2019-07-21 16:20] VITALS: BP 115/62
[2019-07-21] MEDS ORDERED: SODIUM CHLORIDE 0.9% INJ 10 ML SYR IV SCH (18:00)
== END 2019-07-21 16:20 | disposition home or self-care (01) ==
LOC: M INFU 14:17
PROVIDERS: ATTEND Internal Medicine Infectious Disease
DX: M86.68 Other chronic osteomyelitis, other site (principal)
CPT/HCPCS: 96365; J1335; J1642

== ENCOUNTER → 2019-07-21 | Outpatient (CLI) | payer MEDICARE, BC, OTHER ==
[~2019-07-21] MED LIST changes: +ALPR0.5T3 PO; +ELIQ5TAB PO; +LEVO500T3 PO; +LIDOCAINE 1% MDV 20ML VIAL As Ordered ONE; +LOSA25TA14 PO; +METO50TA7 PO; +NYST1POW9 TOP; -PROHANCE 279.3MG/ML 5ML VIAL (A9576) As Ordered ONE; +TORS20TA2 PO; +VANC125C3 PO
[2019-07-21 14:23] VITALS: BP 143/76
--- NOTE | 2019-07-24 13:37 | REP ---
Procedure: PICC line insertion with Erasto The procedure was performed under the direct supervision of Dr. Jones. The risks and benefits of the procedure were explained to the patient and informed consent was obtained. The right basilic vein was localized using ultrasound guidance. The skin was prepped and draped in a sterile fashion. 2% lidocaine was used as a local anesthetic. Using ultrasound guidance the basilic vein was cannulated and a 0.018 guidewire was inserted and advanced to the SVC using fluoroscopic guidance. The needle was removed and a 4.5 Lao dilator and peel-away sheath was inserted over the guide wire. A 4.5 Lao single lumen catheter was cut to length of 43 cm. The dilator was removed and the catheter was inserted over the guide wire with the tip ending in the SVC. The peel-away sheath was removed and the catheter was flushed with heparinized saline as per Hospital protocol. The catheter was affixed to the skin and a sterile dressing was applied. The patient tolerated the procedure well and there were no immediate complications. 0.3 minutes of fluoro time was utilized for this procedure. Electronically Signed by MIKEL Degroot 07/21/2019 02:36 P Electronically Signed by Alexis Jones MD 07/24/2019 01:27 P
== END ==
LOC: M IRPRO 12:46
PROVIDERS: ATTEND Internal Medicine Infectious Disease
DX: M86.68 Other chronic osteomyelitis, other site (principal)
CPT/HCPCS: 36573; 96365; C1751; G0277; J1335; J1642; J1644

== ENCOUNTER → 2019-09-21 | Outpatient (REF) | payer MEDICARE, BC, OTHER ==
[2019-10-20 22:40] LABS: BASO # 0.1 10^3/uL (0.0-0.2); BASO % 0.9 % (0.0-1.0); EOS # 0.3 10^3/uL (0.0-0.5); EOS % 3.3 % (0.0-3.0); ERYTHROCYTE SEDIMENTATION RATE 31 mm/hr (0-20); HEMATOCRIT 44.8 % (42.0-52.0); HEMOGLOBIN 14.2 g/dl (13.5-17.5); LYMPH # 1.5 10^3/uL (1.5-5.0); LYMPH % 18.5 % (24.0-44.0); MEAN CORPUSCULAR HEMOGLOBIN 30.2 pg (27.0-33.0); MEAN CORPUSCULAR HGB CONC 31.7 g/dl (32.0-36.5); MEAN CORPUSCULAR VOLUME 95.3 fl (80.0-96.0); MONO # 0.8 10^3/uL (0.0-0.8); MONO % 9.8 % (0.0-5.0); NEUTROPHILS # 5.4 10^3/uL (1.5-8.5); PLATELET COUNT, AUTOMATED 191 10^3/uL (150-450)
== END ==
LOC: M LABSMT 13:47
PROVIDERS: ATTEND Internal Medicine Infectious Disease
DX: Z79.01 Long term (current) use of anticoagulants (principal)
CPT/HCPCS: 36415; 85025; 85652; 86140; G0277; G0463

== ENCOUNTER → 2019-10-19 | Outpatient (CLI) | payer MEDICARE, BC, OTHER ==
[2019-10-19 13:12] LABS: BASO # 0.1 10^3/uL (0.0-0.2); BASO % 0.6 % (0.0-1.0); EOS # 0.2 10^3/uL (0.0-0.5); EOS % 2.5 % (0.0-3.0); HEMATOCRIT 43.2 % (42.0-52.0); HEMOGLOBIN 14.1 g/dl (13.5-17.5); LYMPH # 1.3 10^3/uL (1.5-5.0); MEAN CORPUSCULAR HEMOGLOBIN 30.5 pg (27.0-33.0); MEAN CORPUSCULAR HGB CONC 32.6 g/dl (32.0-36.5); MEAN CORPUSCULAR VOLUME 93.3 fl (80.0-96.0); MONO % 12.1 % (0.0-5.0); NEUTROPHILS # 5.7 10^3/uL (1.5-8.5); NEUTROPHILS % 68.1 % (36.0-66.0); PLATELET COUNT, AUTOMATED 202 10^3/uL (150-450); RED BLOOD COUNT 4.63 10^6/uL (4.30-6.10); WHITE BLOOD COUNT 8.3 10^3/uL (4.0-10.0)
[2019-10-19 13:24] LABS: C REACTIVE PROTEIN QUANTITATIV 1.17 MG/DL (0.00-0.30); CALCIUM LEVEL 9.2 MG/DL (8.8-10.2); CREATININE FOR GFR 1.38 MG/DL (0.70-1.30); GLOMERULAR FILTRATION RATE 53.1 (>42); POTASSIUM SERUM 4.3 MEQ/L (3.5-5.1)
[2019-10-19 13:31] LABS: APPEARANCE, URINE TURBID (CLEAR); BACTERIA, URINE AUTO 1+ (NEGATIVE); BILIRUBIN, URINE AUTO NEGATIVE (NEGATIVE); BLOOD, URINE BLOOD 1+ (NEGATIVE); COLOR, URINE YELLOW (YELLOW); GLUCOSE, URINE (UA) AUTO NEGATIVE (NEGATIVE); KETONE, URINE AUTO NEGATIVE (NEGATIVE); LEUKOCYTE ESTERASE, URINE AUTO 1+ (NEGATIVE); MUCUS, URINE SMALL (NEGATIVE); NITRITE, URINE AUTO NEGATIVE (NEGATIVE); PROTEIN, URINE AUTO 1+ mg/dL (NEGATIVE); RBC, URINE AUTO 8 /HPF (0-3); SPECIFIC GRAVITY URINE AUTO 1.017 (1.002-1.035); SQUAMOUS EPITHELIAL CELL UR AU 0 /HPF (0-6); UROBILINOGEN, URINE AUTO 0.2 mg/dL (0.0-2.0); WBC, URINE AUTO 25 /HPF (0-3)
[2019-10-19 13:55] LABS: ERYTHROCYTE SEDIMENTATION RATE 41 mm/hr (0-20)
== END ==
LOC: M PLALAB 10:31
PROVIDERS: ATTEND Internal Medicine Infectious Disease
DX: R36.9 Urethral discharge, unspecified (principal)
CPT/HCPCS: 11042; 36415; 80048; 81001; 85025; 85652; 86140; 87086; G0463